=== PATIENT | male | born 1955 | race Caucasian/White ===

== ENCOUNTER → 2020-02-17 06:55 | Outpatient (CLI) | payer OTHER, SELFPAY ==
--- NOTE | 2020-02-17 | DI.ECHO.S_ITS ---
[facility]---------+ [facility] +---------+ : : [address] : [place] : : : : [id number] : : : : Phone: [phone]---------+ Echocardiogram Report + + :Name: DORI RIVERS Study Date: 02/17/2020 Height: 71.5 in: :[facility] Weight: 240 lb : : Gender: Male BSA: 2.3 m2 : :: 1955 Age: 64 yrs : :Reason For Study: CHEST PAIN : : Performed By: Fallon Mahoney : :Referring: DIDIER AUSTIN R : + + Interpretation Summary The left ventricle is normal in size. Left ventricular systolic function is low normal. The ejection fraction is estimated to be 50-55%. No obvious focal wall motion abnormalities on Definity contrast study. Diastolic parameters suggest probable normal left ventricular diastolic function and normal filling pressures. The right ventricle is mildly dilated. The right ventricular systolic function is normal. The left atrial size is normal. The right atrium is normal in size. There is no significant valvular heart disease. The aortic root is borderline dilated. The ascending aorta is moderately enlarged. The aortic arch is mildly enlarged. Procedure: A two-dimensional transthoracic echocardiogram with color flow and Doppler was performed. The study quality was technically adequate. A contrast injection of Definity was performed to improve assessment of LV function. Contrast was injected into an intravenous site in the left arm. There is no prior echocardiogram noted for this patient. Patient was very tender with limited pressure during exam. The patient was in sinus bradycardia with heart rates between 56-61 bpm during the exam. Left Ventricle: The left ventricle is normal in size. Proximal septal thickening is noted. Left ventricular wall thickness is mildly increased. Left ventricular systolic function is low normal. The ejection fraction is estimated to be 50-55%. No obvious focal wall motion abnormalities on Definity contrast study. Diastolic parameters suggest probable normal left ventricular diastolic function and normal filling pressures. Right Ventricle: The right ventricle is mildly dilated. The right ventricular systolic function is normal. Atria: The left atrial size is normal. The right atrium is normal in size. There is no Doppler evidence for an interatrial shunt. Mitral Valve: The mitral valve is normal in structure and function. There is trace mitral regurgitation. Aortic Valve: The aortic valve is trileaflet. The aortic valve opens well. There is no aortic valve stenosis. No aortic regurgitation is present. Tricuspid Valve: The tricuspid valve is normal in structure and function. There is trace tricuspid regurgitation. Pulmonic Valve: The pulmonic valve is not well visualized. There is no pulmonic valvular regurgitation. There is no significant valvular heart disease. Great Vessels: The aortic root is borderline dilated. The ascending aorta is moderately enlarged. The aortic arch is mildly enlarged. The inferior vena cava was not visualized. Pericardium/ Pleura There is no pericardial effusion. There is no pleural effusion. MMode/2D Measurements & Calculations LVIDd: 5.0 cm LVOT diam: 2.5 cm LVIDs: 3.8 cm Ao root diam: 3.9 cm FS: 22.8 % asc Aorta Diam: 4.2 cm EPSS: 0.39 cm Ao Arch Diam (Prox Trans): 3.5 cm IVSd: 1.1 cm LVPWd: 1.2 cm LV jones. diameter/BSA (cm/m^2): 2.2 LV sys. diameter/BSA (cm/m^2): 1.7 LA A2 area: 18.3 cm2 RA long axis: 5.7 cm LA A4 area: 12.4 cm2 RA area: 15.5 cm2 LA length (vol): 4.4 cm RA vol: 35.9 ml LA vol: 43.6 ml RA : 15.7 ml/m2 LA vol index: 19.1 ml/m2 RVD1 (basal): 4.1 cm TAPSE: 2.0 cm Doppler Measurements & Calculations Ao V2 max: 107.8 cm/sec LVOT Max Cristopher: 78.1 cm/sec Ao V2 mean: 72.4 cm/sec LV V1 max P.4 mmHg Ao max P.6 mmHg LV V1 VTI: 18.3 cm Ao mean P.5 mmHg NONA(I,D): 3.5 cm2 Ao V2 VTI: 25.3 cm NONA(V,D): 3.5 cm2 sev ratio: 0.72 NONA indexed to BSA (cm^2/m^2): 1.5 MV E max cristopher: 80.2 cm/sec PA V2 max: 59.3 cm/sec MV A max cristopher: 56.1 cm/sec PA V2 mean: 36.5 cm/sec MV E/A: 1.4 PA mean P.65 mmHg Med Peak E' Cristopher: 6.1 cm/sec E/E' med: 13.1 Lat Peak E' Cristopher: 8.4 cm/sec E/E' lat: 9.5 E/e' average: 11.3 MV dec time: 0.18 sec SV(LVOT): 88.9 ml Reading Physician:01:05 PM
== END ==
PROVIDERS: Referring Provider Internal Medicine; Visit Provider Internal Medicine
DX: R07.9 Chest pain, unspecified (principal); I77.810 Thoracic aortic ectasia
CPT/HCPCS: 93306; Q9957